=== PATIENT | female | born 1935 | race Caucasian/White ===

== ENCOUNTER 2023-12-17 15:31 | Emergency (ER) | payer MEDICARE, OTHER, SELFPAY ==
[2023-12-17 15:35] VITALS: PULSE 70; TEMP 36.6; O2SAT 97; BMI 21.6
--- NOTE | 2023-12-17 15:47 | XR_ITS ---
The [address] [address] Patient Name: CYNTHIA COELHO MRN: [id number] date: 1935 Sex: F Assigned Patient Location: ER Current Patient Location: ER Accession/Order Number: [id number] Exam Date: 12/17/2023 16:11 Report Date: 12/17/2023 16:30 At the request of: JOSUE DUGAN Procedure: XR chest 2V EXAM: XR chest 2V HISTORY: Shortness of breath COMPARISON: 05/18/2022 TECHNIQUE: Chest X-ray, 2 views FINDINGS: Support devices: None. Lungs/pleura: Bilateral middle and lower lobes peribronchial thickening and mild bronchiectasis. Bilateral emphysema. No consolidation, effusion, or pneumothorax. Heart and mediastinum: Normal contours. Bones: No acute abnormality identified. XR/XR chest 2V Impression: No definite consolidation. Bilateral middle and lower lobes peribronchial thickening and mild bronchiectasis. Bilateral emphysema. Electronically authenticated by: BEREKET HUMMEL Date: 12/17/2023 16:30
[2023-12-17 16:00] VITALS: BP 190/90
--- NOTE | 2023-12-17 16:03 | PC.NURSE ---
hx of recent surgery on left eye on wednesday. pt today started coughing up blood.
--- NOTE | 2023-12-17 16:04 | ED_ITS ---
HPI HPI - General Adult General Chief complaint: Eye Problems Stated complaint: cough up blood Time Seen by Provider: 12/17/23 15:46 Source: patient Mode of arrival: walk-in Limitations: no limitations History of Present Illness HPI narrative: Patient is a 88-year-old female who is presenting to the ER today with hemoptysis. Patient had a left eye surgery on Wednesday. Patient surgery was done in [place]. Patient does take blood pressure medication, she did take her medication this morning. Patient does not take any type of blood thinners. Patient's 2 daughters are at bedside. Patient's 1 daughter is a nurse at Dr[employer] office. Patient has not had any significant coughing this morning. Patient's had no nausea or vomiting. Patient did have strawberry jam on her toast this morning. Patient had 1 episode around 2:00 this afternoon of bloody/clear sputum. Patient currently has no headache. No acute vision changes. No sinus pressure. No nosebleed that she is aware of. No trauma. Patient not picking her nose. No others bleeding from her mouth. Patient was not intubated during the procedure, patient was given sedation through the IV with local injections for numbing, but no breathing tubes that family is aware of. Patient's had no bloody stools, no melena, no hematochezia. All systems are negative except as noted/marked. All systems reviewed and otherwise negative. Nurses note and vital signs reviewed and patient is not hypoxic. General: The patient appears well and in no apparent distress. Patient is resting comfortably on cart. Patient is not toxic, lethargic, or listless Skin: Warm, dry, no pallor noted. There is no rash noted. No petechiae, purpura. Head: Normocephalic, atraumatic, no scalp hematoma. Eye: Normal conjunctiva, no drainage, EOMI. PERRL. Patient's left eye has surgical changes, mild redness/irritation to the right lower aspect of her left eye, approximately 7 o'clock position secondary to surgical site. No hyphema, no chemosis. No signs of obvious conjunctivitis. Lower and upper eyelid was inverted, no signs of foreign body. Ears, Nose, Mouth, and Throat: oral mucosa is moist. Patient has no evidence of any type of obvious signs of bleeding or dried blood to the anterior naris, no blood to the posterior pharynx. No source of bleeding from intraoral cavity that is seen on physical exam. Nares patent. Mouth without vesicles. Cardiovascular: Regular Rate and Rhythm, no murmur, gallop, rub Respiratory: Patient is in no distress, no accessory muscle use, lungs are clear to auscultation, no wheezing, rales or rhonchi Back: non-tender, GI: no tenderness to palpation, no masses appreciated. No rebound, guarding, or rigidity noted. No distention Musculoskeletal: Patient has full range of motion of all of the extremities, no motor, sensory, or focal neurological deficits Neurological: A&O x4, normal speech Psychiatric: Cooperative Related Data Home Medications ?Medication ?Instructions ?Recorded ?Confirmed atenolol 50 mg tablet 50 mg PO DAILY 12/17/23 12/17/23 azelastine 205.5 mcg (0.15 %) 2 spray intranasal DAILY 12/17/23 12/17/23 nasal spray (Astepro Allergy) calcium citrate 250 mg PO TID 12/17/23 12/17/23 colestipol 1 gram tablet 3 g PO BID 12/17/23 12/17/23 diphenoxylate-atropine 2.5 1 tab PO DAILY PRN diarrhea 12/17/23 12/17/23 mg-0.025 mg tablet ferrous gluconate 325 mg (37 mg 324 mg PO DAILY 12/17/23 12/17/23 iron) tablet hyoscyamine sulfate 0.125 mg 0.125 mg sublingual DAILY PRN 12/17/23 12/17/23 sublingual tablet cramping krill 1,000 mg-omega-3 170 mg-dha 1 cap PO DAILY 12/17/23 12/17/23 50 mg-epa 80 [id number] capsule (krill oil) magnesium 200 mg tablet 200 mg PO DAILY 12/17/23 12/17/23 ofloxacin 0.3 % eye drops 1 drp ophthalmic (eye) QID 12/17/23 12/17/23 prednisolone acetate 1 % eye 1 drp ophthalmic (eye) QID 12/17/23 12/17/23 drops,suspension tramadol 50 mg tablet 50 mg PO DAILY PRN pain 12/17/23 12/17/23 Allergies Allergy/AdvReac Type Severity Reaction Status Date / Time Barbiturates Allergy Mild contraindic Verified 12/17/23 15:44 ation Penicillins Allergy Mild contraindic Verified 12/17/23 15:44 ation Phenothiazines Allergy Mild Verified 12/17/23 15:44 morphine Allergy Mild contraindic Uncoded 12/17/23 15:44 ation Opioid HPI Opioid Management Most Recent Opioid Data: No Data to Display Exam Constitutional Vital Signs, click to edit/add: Last Vital Signs Temp 97.8 F 12/17/23 15:35 Pulse 70 12/17/23 15:35 Resp 18 12/17/23 15:35 BP 165/80 H 12/17/23 16:41 Pulse Ox 97 12/17/23 15:35 O2 Del Method Room Air 12/17/23 15:35 Course Vital Signs Vital signs: Vital Signs Temperature 97.8 F 12/17/23 15:35 Pulse Rate 70 12/17/23 15:35 Respiratory Rate 18 12/17/23 15:35 Pulse Oximetry 97 12/17/23 15:35 Oxygen Delivery Method Room Air 12/17/23 15:35 Temperature 97.8 F 12/17/23 15:35 Pulse Rate 70 12/17/23 15:35 Respiratory Rate 18 12/17/23 15:35 Blood Pressure 165/80 H 12/17/23 16:41 Pulse Oximetry 97 12/17/23 15:35 Oxygen Delivery Method Room Air 12/17/23 15:35 Medical Decision Making MDM Narrative Medical decision making narrative: A copy of the chest x-ray was given to the patient and her 2 daughters. Patient has no obvious signs of mass, no other significant findings on chest x-ray. Patient stated that she had the 1 episode of hemoptysis at home, then she when she was coughing, it was a pinkish coloration. Patient only had 1 episode of hemoptysis, it has not been excessive or continuous. Patient and 2 daughters at bedside are comfortable with going home. Patient was given strict return precautions. Patient otherwise will follow-up with Dr. Dover as needed. Patient and daughters understand this, no questions at discharge. Patient has not been hypoxic. Patient blood pressure was slightly elevated. It did improve on its own with no intervention. Patient did have some admitted slight anxiety secondary to evaluation in the ER and hemoptysis. Patient is very comfortable at bedside. Patient will continue with dry medications as well. No questions at discharge. Discharge Plan Discharge Stand Alone Forms: Portal Instructions Chief Complaint: Eye Problems Clinical Impression: Hemoptysis Patient Disposition: Home, Self-Care Time of Disposition Decision: 17:00 Condition: Fair Prescriptions / Home Meds: No Action ofloxacin 0.3 % drops 1 drp ophthalmic (eye) QID prednisolone acetate 1 % drops,suspension 1 drp OPHTHALMIC (EYE) QID atenolol 50 mg tablet 50 mg PO DAILY azelastine [Astepro Allergy] 205.5 mcg (0.15 %) spray,non-aerosol 2 spray intranasal DAILY Rx Instructions: administer into each nostril calcium citrate 250 mg calcium tablet 250 mg PO TID colestipol 1 gram tablet 3 g PO BID ferrous gluconate 325 mg (37 mg iron) tablet 324 mg PO DAILY krill oil [id number] mg capsule 1 cap PO DAILY magnesium 200 mg tablet 200 mg PO DAILY diphenoxylate-atropine 2.5-0.025 mg tablet 1 tab PO DAILY PRN (Reason: diarrhea) tramadol 50 mg tablet 50 mg PO DAILY PRN (Reason: pain) hyoscyamine sulfate 0.125 mg tablet, sublingual 0.125 mg sublingual DAILY PRN (Reason: cramping) Print Language: B[place] Instructions: Coughing Up Blood (Hemoptysis) (ED) Additional Instructions: If you are having any type of significant amount of coughing with blood, significant amount of vomiting of blood, or any other acute concerns, return back to the ER. A copy of the chest x-ray has been given to you, no significant findings which is great news. Follow-up with Dr. Dover for additional testing as needed. Referrals: ADRIAN JOVEL [Primary Care Provider] - 1 week Discharge Date/Time: 12/17/23 17:09
[2023-12-17 16:41] VITALS: BP 165/80
== END 2023-12-17 17:09 | disposition home or self-care (01) ==
PROVIDERS: Emergency Provider Emergency Medicine; PCP Family Medicine
DX: R04.2 Hemoptysis (principal)
CPT/HCPCS: 71046; 99283